=== PATIENT | female | born 1975 | race Caucasian/White ===

== ENCOUNTER 2018-01-09 21:12 | Emergency (ER) | payer BC, OTHER ==
[2018-01-09 21:22] VITALS: TEMP 97.7
--- NOTE | 2018-01-09 22:04 | ED ---
Chest Pain HPI - General Chief Complaint: Chest Pain Stated Complaint: CP Time Seen by Provider: 01/09/18 21:24 Source: patient Mode of arrival: wheelchair Limitations: no limitations - History of Present Illness MD Complaint: chest pain -: days(s) Onset: during rest Pain Location: left chest Pain Radiation: back Severity: moderate Quality: aching Consistency: constant Improves With: nothing Worsens With: palpation Other Symptoms: cough Treatments Prior to Arrival: other (Antibiotic course) - Related Data Home Medications Medication Instructions Recorded Confirmed Excedrin Migraine 2 tab PO BID PRN 08/01/15 08/01/15 Previous Rx's Medication Instructions Recorded HYDROcodone/APAP 5-325MG [Clio 1 tab PO Q6HR PRN #20 tab 08/01/15 5-325] Ibuprofen [Motrin] 600 mg PO Q6HR PRN #20 tab 08/01/15 Orphenadrine [Norflex] 100 mg PO Q12H PRN #12 tablet.er 08/01/15 Ibuprofen [Motrin] 600 mg PO Q8HR PRN #20 tab 01/10/18 Promethazine 6.25MG/5Ml [Phenergan 5 ml PO Q4HR PRN #120 ml 01/10/18 Syrup] Allergies Allergy/AdvReac Type Severity Reaction Status Date / Time cephalexin monohydrate Allergy Rash/Hives Verified 08/01/15 19:18 [From Keflex] chocolate flavor Allergy Rash/Hives Verified 08/01/15 19:18 ciprofloxacin [From Cipro] Allergy Unknown Verified 01/09/18 21:23 corn Allergy Rash/Hives Verified 08/01/15 19:18 Penicillins Allergy Unknown Verified 08/01/15 19:18 Childhood Sulfa (Sulfonamide Allergy Rash/Hives Verified 08/01/15 19:18 Antibiotics) Review of Systems ROS Statement: Those systems with pertinent positive or pertinent negative responses have been documented in the HPI. ROS Other: All systems not noted in ROS Statement are negative. Constitutional: Denies: fever, chills Respiratory: Reports: cough. Denies: dyspnea Cardiovascular: Reports: chest pain. Denies: palpitations Gastrointestinal: Denies: abdominal pain, nausea, vomiting, diarrhea Genitourinary: Denies: dysuria, hematuria Musculoskeletal: Denies: back pain Skin: Denies: rash Neurological: Denies: headache, weakness, numbness EKG Findings - EKG Results: EKG: interpreted by ERMD, sinus rhythm, normal axis, normal QRS, normal ST/T EKG shows: tachycardia (Rate approximate 105 bpm) Past Medical History Past Medical History: Diabetes Mellitus, Fibromyalgia Additional Past Medical History / Comment(s): Sciatica; Fibromyalgia; Herniated Discs History of Any Multi-Drug Resistant Organisms: None Reported Past Surgical History: Section, Cholecystectomy Past Psychological History: Anxiety, Depression Smoking Status: Former smoker Past Alcohol Use History: None Reported Past Drug Use History: None Reported General Exam Limitations: no limitations General appearance: alert, in no apparent distress, obese Head exam: Present: atraumatic, normocephalic ENT exam: Present: normal oropharynx Respiratory exam: Present: normal lung sounds bilaterally, chest wall tenderness (Left-sided ribs along the costal margin). Absent: respiratory distress, wheezes, rales, rhonchi, stridor, accessory muscle use, decreased breath sounds, prolonged expiratory Cardiovascular Exam: Present: normal rhythm, tachycardia (Rate 108 at my exam), normal heart sounds. Absent: systolic murmur, diastolic murmur, rubs, gallop GI/Abdominal exam: Present: soft. Absent: distended, tenderness, guarding, rebound Extremities exam: Present: normal inspection, normal capillary refill. Absent: pedal edema, calf tenderness Back exam: Present: normal inspection. Absent: CVA tenderness (R), CVA tenderness (L), paraspinal tenderness, vertebral tenderness Neurological exam: Present: alert Skin exam: Present: warm, dry, intact, normal color. Absent: rash Course Vital Signs 01/09/18 01/09/18 01/10/18 21:17 21:49 00:33 Temperature 97.7 F Pulse Rate 108 H 144 H Pulse Rate [ 113 H Oiler Helper ] Respiratory 17 19 Rate Blood Pressure 152/80 128/86 O2 Sat by Pulse 100 95 Oximetry Disposition Clinical Impression: Chest wall pain, Hyperglycemia Disposition: HOME SELF-CARE Condition: Good Instructions: Chest Wall Pain (ED) Prescriptions: Ibuprofen [Motrin] 600 mg PO Q8HR PRN #20 tab PRN Reason: Pain Promethazine 6.25MG/5Ml [Phenergan Syrup] 5 ml PO Q4HR PRN #120 ml PRN Reason: Cough Is patient prescribed a controlled substance at d/c from ED?: No Referrals: Marshal Dudley MD [Primary Care Provider] - 1-2 days
--- NOTE | 2018-01-09 22:21 | XR ---
EXAMINATION TYPE: XR chest 2V DATE OF EXAM: 01/09/2018 COMPARISON: NONE HISTORY: Chest pain TECHNIQUE: Frontal and lateral views of the chest are obtained. FINDINGS: Heart and mediastinum are normal. Lungs are clear. Diaphragm is normal. Bony thorax is int act. There are chest leads. IMPRESSION: Normal chest
[2018-01-09 22:31] LABS: Basophils % (A) 0 %; Eosinophils # (A) 0.2 k/uL (0-0.7); Eosinophils % (A) 2 %; HCT 41.2 % (34.0-46.0); Lymphocytes # (A) 2.4 k/uL (1.0-4.8); Lymphocytes % (A) 25 %; MCH 29.2 pg (25.0-35.0); MCHC 31.7 g/dL (31.0-37.0); MCV 92.1 fL (80.0-100.0); Mean Platelet Volume 6.6; Monocytes # (A) 0.5 k/uL (0-1.0); Monocytes % (A) 5 %; Neutrophils # (A) 6.3 k/uL (1.3-7.7); Neutrophils % (A) 66 %; Platelet Count 408 k/uL (150-450); RBC 4.47 m/uL (3.80-5.40); RDW 13.5 % (11.5-15.5); WBC 9.5 k/uL (3.8-10.6)
[2018-01-09 22:49] LABS: ALT 22 U/L (9-52); AST 24 U/L (14-36); Albumin 4.1 g/dL (3.5-5.0); Alkaline Phosphatase 77 U/L (38-126); Anion Gap 10 mmol/L; Blood Urea Nitrogen 13 mg/dL (7-17); Calcium 9.7 mg/dL (8.4-10.2); Carbon Dioxide 25 mmol/L (22-30); Chloride 104 mmol/L (98-107); Glucose 221 mg/dL (74-99); Magnesium 1.9 mg/dL (1.6-2.3); Potassium 4.9 mmol/L (3.5-5.1); Sodium 139 mmol/L (137-145); Total Bilirubin 0.5 mg/dL (0.2-1.3); Total Protein 7.2 g/dL (6.3-8.2)
[2018-01-09 22:50] LABS: Creatine Kinase 48 U/L (30-135)
[2018-01-09 23:03] LABS: Creatine Kinase MB 0.3 ng/mL (0.0-2.4); Troponin I <0.012 ng/mL (0.000-0.034)
[2018-01-09 23:44] LABS: D-Dimer 0.35 mg/L FEU (<0.60); Prothrombin Time 9.9 sec (9.0-12.0)
[2018-01-10 00:34] VITALS: BP 128/86; PULSE 144; RESP 19
== END 2018-01-10 00:43 | disposition home or self-care (01) ==
LOC: EC 21:12
DX: R07.89 Other chest pain (principal); E11.65 Type 2 diabetes mellitus with hyperglycemia; Z88.0 Allergy status to penicillin; Z88.1 Allergy status to other antibiotic agents; Z88.2 Allergy status to sulfonamides; Z91.018 Allergy to other foods; Z87.891 Personal history of nicotine dependence
CPT/HCPCS: 36415; 71046; 80053; 82550; 82553; 83735; 84484; 85025; 85379; 85610; 85730; 93005; 99285

== ENCOUNTER → 2018-01-14 | Outpatient (CLI) | payer OTHER ==
[~2018-01-14] MED LIST: CAFFEINE CITRATE 60 MG/3 ML VIAL ONE; DEXTROSE 5% IN WATER 50 ML BAG ONE; REGADENOSON 0.4 MG/5 ML SYRINGE IV ONE
--- NOTE | 2018-01-14 11:38 | EST ---
EXERCISE STRESS AGE: 42 SEX: F HT: 5'5" WT: 355 PROTOCOL: Lexiscan Cardiolite Stress Test HEART RATE REST: 85 BLOOD PRESSURE REST: 153/84 MAXIMUM HEART RATE ACHIEVED: 128 MAXIMUM BLOOD PRESSURE: 158/43 INDICATIONS: Chest pain. CLINICAL INFORMATION: Baseline EKG shows sinus rhythm, normal axis, normal intervals. Patient was given intravenous Lexiscan as per protocol. Did not have chest pain or diagnostic ST-segment depression. CONCLUSIONS: 1. Negative stress test by EKG criteria. 2. Cardiolite portion of the stress test will be reported separately. MMODL / IJN: [id number] /
--- NOTE | 2018-01-14 14:44 | NM ---
EXAMINATION TYPE: NM stress lexiscan cardiolite DATE OF EXAM: 01/14/2018 COMPARISON: NONE HISTORY: History of tobacco use quit 10 years ago. Family history of heart attack and mild and partia l history of diabetes presents with chest pain and palpitations TECHNIQUE: After the intravenous administration of 10.41 mCi Tc 99m Sestamibi - Cardiolite resting S PECT images acquired 45 minutes post injection. The patient received 0.4mg Lexiscan, 25.2 mCi Tc 99m Sestamibi - Stress images obtained [address] injection FINDINGS: Review of stress and rest SPECT images demonstrates poor uptake involving anterior left ventricular w all on stress and rest images seen best short axis and vertical long axis views with suggestion of so me increased perfusion on the rest images versus stress images. Acute ischemia at this level cannot be excluded. Gated analysis shows normal wall motion with an estimated left ventricular ejection frac tion of 63 %. IMPRESSION: Cannot rule out acute ischemia involving anterior wall in the LAD distribution. Advise fu rther investigation with direct catheter angiogram or CTA coronary study. Results communicated to ordering physician office via telephone at time of dictation.
== END | disposition home or self-care (01) ==
LOC: RADNMMAIN 07:40
PROVIDERS: ATTEND Family Medicine
DX: R07.89 Other chest pain (principal)
CPT/HCPCS: 93017; 78452; A9500; J2785

== ENCOUNTER → 2019-11-30 | Outpatient (CLI) | payer OTHER ==
[2019-12-01 01:30] LABS: Cyclic Citrull Pep IgG Unit 0.9 U/mL; Cyclic Citrullinated Pep IgG NEGATIVE (NEGATIVE)
[2019-12-01 02:18] LABS: C Reactive Protein 0.8 mg/dL (0.0-0.8)
== END | disposition home or self-care (01) ==
LOC: LABWHC1 15:16
PROVIDERS: ATTEND Family Medicine
DX: Z13.828 Encounter for screening for other musculoskeletal disorder (principal); Z82.61 Family history of arthritis
CPT/HCPCS: 36415; 85652; 86038; 86140; 86200; 86431

== ENCOUNTER → 2020-02-06 | Outpatient (CLI) | payer OTHER | END | disposition home or self-care (01) | LOC: LABWHC1 15:53 | PROVIDERS: ATTEND Family Medicine | DX: Z20.828 Contact with and (suspected) exposure to other viral communicable diseases (principal) | CPT/HCPCS: U0003; C9803 ==

== ENCOUNTER 2020-11-06 18:06 | Emergency (ER) | payer OTHER ==
[2020-11-06 18:59] VITALS: BP 136/88; PULSE 69; RESP 18; TEMP 98.4
[2020-11-06] MEDS ORDERED: LIDOCAINE 1% INJ 10MG/ML (20 ML MDV) SQ ONE (20:01)
--- NOTE | 2020-11-06 20:06 | ED ---
Female Urogenital HPI - General Source: patient, RN notes reviewed Mode of arrival: ambulatory Limitations: no limitations - History of Present Illness MD Complaint: other (Bartholin's gland swelling) -: days(s) (8) Location: labia Radiation: non-radiating Severity scale (1-10): 6 Quality: sharp Consistency: constant Improves with: none Worsens with: other (Palpation) Associated Symptoms: denies other symptoms <Ezequiel Crawford - Last Filed: 11/06/20 23:00> <Mariola Kenney - Last Filed: 11/10/20 14:28> - General Chief complaint: Urogenital Stated complaint: cyst Time Seen by Provider: 11/06/20 19:30 - History of Present Illness Initial comments: 45-year-old obese white female presents to the emergency room with complaints of a bartholoin gland swelling for the past 8 days. Patient states that she's had these before. She did contact her primary care doctor and he told her he did not drain them in the office and have to refer her someone else. Patient states that she's been trying to soak in the bathtub at home also tried Epsom salts she states that she had a Z-Sameer that was prescribed to her that she did not use and took that finishing the last one yesterday. She states that she did have a fever of 100.7 today and did take Motrin her temperature at this time is 98.4. Patient states that she does not have diabetes. (Ezequiel Crawford) - Related Data Home Medications Medication Instructions Recorded Confirmed Excedrin Migraine 2 tab PO BID PRN 08/01/15 08/01/15 Previous Rx's Medication Instructions Recorded HYDROcodone/APAP 5-325MG [Firestone 1 tab PO Q6HR PRN #20 tab 08/01/15 5-325] Ibuprofen [Motrin] 600 mg PO Q6HR PRN #20 tab 08/01/15 Orphenadrine [Norflex] 100 mg PO Q12H PRN #12 tablet.er 08/01/15 Ibuprofen [Motrin] 600 mg PO Q8HR PRN #20 tab 01/10/18 Promethazine 6.25MG/5Ml [Phenergan 5 ml PO Q4HR PRN #120 ml 01/10/18 Syrup] Allergies Allergy/AdvReac Type Severity Reaction Status Date / Time cephalexin monohydrate Allergy Rash/Hives Verified 11/06/20 18:58 [From Keflex] chocolate flavor Allergy Rash/Hives Verified 11/06/20 18:58 ciprofloxacin [From Cipro] Allergy Unknown Verified 11/06/20 18:58 corn Allergy Rash/Hives Verified 11/06/20 18:58 Penicillins Allergy Unknown Verified 11/06/20 18:58 Childhood Sulfa (Sulfonamide Allergy Rash/Hives Verified 11/06/20 18:58 Antibiotics) Review of Systems ROS Other: All systems not noted in ROS Statement are negative. <Ezequiel Crawford - Last Filed: 11/06/20 23:00> ROS Other: All systems not noted in ROS Statement are negative. <Mariola Kenney - Last Filed: 11/10/20 14:28> ROS Statement: Those systems with pertinent positive or pertinent negative responses have been documented in the HPI. Past Medical History Past Medical History: Diabetes Mellitus, Fibromyalgia Additional Past Medical History / Comment(s): Sciatica; Fibromyalgia; Herniated Discs History of Any Multi-Drug Resistant Organisms: None Reported Past Surgical History: Section, Cholecystectomy Past Psychological History: Anxiety, Depression Smoking Status: Never smoker Past Alcohol Use History: None Reported Past Drug Use History: None Reported <Ezequiel Crawford - Last Filed: 11/06/20 23:00> General Exam Limitations: no limitations General appearance: alert, in no apparent distress Head exam: Present: atraumatic, normocephalic, normal inspection Eye exam: Present: normal appearance, PERRL, EOMI. Absent: scleral icterus, conjunctival injection, periorbital swelling ENT exam: Present: normal exam, mucous membranes moist Neck exam: Present: normal inspection, full ROM. Absent: tenderness, meningis mus, lymphadenopathy Respiratory exam: Present: normal lung sounds bilaterally. Absent: respiratory distress, wheezes, rales, rhonchi, stridor, accessory muscle use, decreased breath sounds Cardiovascular Exam: Present: regular rate, normal rhythm, normal heart sounds. Absent: systolic murmur, diastolic murmur, rubs, gallop, clicks GI/Abdominal exam: Present: soft, normal bowel sounds. Absent: distended, tenderness, guarding, rebound, rigid External exam: Present: erythema, swelling. Absent: lesions, lacerations, ecchymosis (Right labia) Neurological exam: Present: alert, oriented X3, CN II-XII intact Psychiatric exam: Present: normal affect, normal mood Skin exam: Present: warm, dry, intact, normal color. Absent: rash, cyanosis, diaphoretic <Ezequiel Crawford - Last Filed: 11/06/20 23:00> Course Vital Signs 11/06/20 18:56 Temperature 98.4 F Pulse Rate 69 Respiratory 18 Rate Blood Pressure 136/88 O2 Sat by Pulse 98 Oximetry Procedures - Incision & Drainage Consent Obtained: verbal consent Site: vulva/vagina (bartholin gland) Anesthetic Used: lidocaine 1% I&D Cleaning Method: Betadine Sterile Field Used?: Yes Scalpel Used: #11 Needle Aspiration Performed?: No I&D Drainage Obtained: Pus, Blood Culture Obtained?: No Patient Tolerated Procedure: well <Ezequiel Crawford - Last Filed: 11/06/20 23:00> Medical Decision Making <Ezequiel Crawford - Last Filed: 11/06/20 23:00> <Mariola Kenney - Last Filed: 11/10/20 14:28> - Medical Decision Making Bartholin's gland drainage from the right labia performed. Patient tolerated procedure well with 1% lidocaine and scalpel. She will be directed to use sitz baths 3 times a day and follow-up with her primary care doctor or gynecology next week. Return to emergency room with any worsening or new symptoms. Case discussed with Dr. Kenney (Ezequiel Crawford) I was available for consultation in the emergency department. The history and physical exam were done by the midlevel provider. I was consulted for this patients care. I reviewed the case with the midlevel provider and based on their presentation of the patient, I agree with the assessment, medical decision making and plan of care as documented. Lubin catheter attempted however patient could not tolerate and asked for removal. Chart was dictated using [employer] dictation software. Attempts were made to correct any dictation errors however some typographical errors may persist. Patient was seen during a national state of emergency due to the Covid-19 pandemic. (Mariola Kenney) Disposition Is patient prescribed a controlled substance at d/c from ED?: No Time of Disposition: 20:39 <Ezequiel Crawford - Last Filed: 11/06/20 23:00> <Mariola Kenney - Last Filed: 11/10/20 14:28> Clinical Impression: Bartholin's gland abscess Disposition: HOME SELF-CARE Condition: Good Instructions (If sedation given, give patient instructions): Bartholin Cyst (ED), Incision and Drainage (ED) Additional Instructions: Use sitz bath 3 times a day, return to the emergency room with any worsening symptoms including fever, increased pain. Follow-up with your doctor in 1 week Referrals: Marshal Dudley MD [Primary Care Provider] - 1-2 days Vadim Be MD [STAFF PHYSICIAN] - 1-2 days
== END 2020-11-06 21:40 | disposition home or self-care (01) ==
LOC: EC 18:06
DX: N75.1 Abscess of Bartholin's gland (principal); E11.9 Type 2 diabetes mellitus without complications; M79.7 Fibromyalgia; F32.9 Major depressive disorder, single episode, unspecified; F41.9 Anxiety disorder, unspecified; Z79.1 Long term (current) use of non-steroidal anti-inflammatories (NSAID); Z79.899 Other long term (current) drug therapy; Z88.0 Allergy status to penicillin; Z88.1 Allergy status to other antibiotic agents; Z88.2 Allergy status to sulfonamides; Z88.8 Allergy status to other drugs, medicaments and biological substances
CPT/HCPCS: 56420; 99283; J2001

== ENCOUNTER 2021-02-16 21:36 | Emergency (ER) | payer OTHER ==
--- NOTE | 2021-02-16 22:11 | ED ---
Chest Pain HPI - General Chief Complaint: Chest Pain Stated Complaint: Chest pain Time Seen by Provider: 02/16/21 21:52 Source: patient Mode of arrival: ambulatory Limitations: no limitations - History of Present Illness Initial Comments: This patient is a 39-year-old woman who presents to be evaluated for bilateral chest pain that is been going on for couple of days. She describes it as a tightness. She states that it came on at rest. She states she has been doing a lot of coughing going back for a few weeks. Last month she had been diagnosed w ith pneumonia and she states that it started to get a little better and then the cough seemed to persist. She did have coronavirus exposures so she was tested for that on Thursday and was positive. The patient has not had other anginal symptoms. No dyspnea, diaphoresis, nausea or vomiting, palpitations or lightheadedness. MD Complaint: chest pain Onset/Timin -: days(s) Onset: during rest Pain Location: left chest, right chest Pain Radiation: none Severity: mild Quality: tightness Consistency: constant Improves With: nothing Worsens With: nothing Treatments Prior to Arrival: none - Related Data Home Medications Medication Instructions Recorded Confirmed Albuterol Sulfate [Ventolin HFA] 2 puff INHALATION RT-QID PRN 02/16/21 02/16/21 Azithromycin [Zithromax] 500 mg PO DAILY 02/16/21 02/16/21 Dexamethasone 6 mg PO DAILY 02/16/21 02/16/21 Magnesium 250 mg PO DAILY 02/16/21 02/16/21 Allergies Allergy/AdvReac Type Severity Reaction Status Date / Time cephalexin monohydrate Allergy Rash/Hives Verified 02/16/21 22:24 [From Keflex] chocolate flavor Allergy Rash/Hives Verified 02/16/21 22:24 ciprofloxacin [From Cipro] Allergy Unknown Verified 02/16/21 22:24 corn Allergy Rash/Hives Verified 02/16/21 22:24 Penicillins Allergy Unknown Verified 02/16/21 22:24 Childhood Sulfa (Sulfonamide Allergy Rash/Hives Verified 02/16/21 22:24 Antibiotics) Review of Systems ROS Statement: Those systems with pertinent positive or pertinent negative responses have been documented in the HPI. ROS Other: All systems not noted in ROS Statement are negative. Constitutional: Denies: fever, chills ENT: Denies: ear pain, congestion Respiratory: Reports: as per HPI, cough. Denies: dyspnea, wheezes, hemoptysis Cardiovascular: Reports: as per HPI, chest pain. Denies: palpitations, orthopnea, edema, syncope Gastrointestinal: Denies: abdominal pain, vomiting, diarrhea Genitourinary: Denies: dysuria, hematuria Musculoskeletal: Denies: back pain Skin: Denies: rash Neurological: Denies: headache, weakness EKG Findings - EKG Results: EKG: interpreted by ERMD, sinus rhythm, normal axis, normal QRS, normal ST/T, no acute changes EKG shows: tachycardia (Rate 102) Past Medical History Past Medical History: Diabetes Mellitus, Fibromyalgia Additional Past Medical History / Comment(s): Sciatica; Fibromyalgia; Herniated Discs. Covid 02/26 History of Any Multi-Drug Resistant Organisms: None Reported Past Surgical History: Section, Cholecystectomy Past Psychological History: Anxiety, Depression Smoking Status: Never smoker Past Alcohol Use History: None Reported Past Drug Use History: None Reported General Exam Limitations: no limitations General appearance: alert, in no apparent distress Head exam: Present: atraumatic, normocephalic Eye exam: Present: normal appearance. Absent: scleral icterus, conjunctival injection Neck exam: Present: normal inspection Respiratory exam: Present: normal lung sounds bilaterally. Absent: respiratory distress, wheezes, rales, rhonchi, stridor, chest wall tenderness Cardiovascular Exam: Present: regular rate, normal rhythm, normal heart sounds. Absent: systolic murmur, diastolic murmur, rubs, gallop GI/Abdominal exam: Present: soft. Absent: distended, tenderness, guarding, rebound, rigid, mass Extremities exam: Present: normal inspection, normal capillary refill. Absent: pedal edema, calf tenderness Back exam: Present: normal inspection. Absent: CVA tenderness (R), CVA tenderness (L) Neurological exam: Present: alert Skin exam: Present: warm, dry, intact, normal color. Absent: rash Course Vital Signs 02/16/21 02/16/21 21:37 22:36 Temperature 98.5 F Pulse Rate 118 H 93 Respiratory 22 18 Rate Blood Pressure 138/87 116/72 O2 Sat by Pulse 95 98 Oximetry Disposition Clinical Impression: Chest pain Disposition: HOME SELF-CARE Condition: Good Instructions (If sedation given, give patient instructions): Chest Pain (ED) Is patient prescribed a controlled substance at d/c from ED?: No Referrals: Marshal Dudley MD [Primary Care Provider] - 1-2 days
[2021-02-16 22:45] VITALS: RESP 18
[2021-02-16 22:57] LABS: Basophils % (A) 0 %; Eosinophils % (A) 0 %; HCT 42.9 % (34.0-46.0); HGB 14.1 gm/dL (11.4-16.0); Lymphocytes # (A) 0.6 k/uL (1.0-4.8); Lymphocytes % (A) 11 %; MCH 31.2 pg (25.0-35.0); MCHC 32.8 g/dL (31.0-37.0); MCV 95.1 fL (80.0-100.0); Mean Platelet Volume 6.8; Monocytes # (A) 0.2 k/uL (0-1.0); Monocytes % (A) 4 %; Neutrophils # (A) 4.1 k/uL (1.3-7.7); Neutrophils % (A) 83 %; Platelet Count 286 k/uL (150-450); RBC 4.51 m/uL (3.80-5.40); RDW 13.3 % (11.5-15.5); WBC 4.9 k/uL (3.8-10.6)
--- NOTE | 2021-02-16 23:04 | XR ---
EXAMINATION TYPE: XR chest 1V portable DATE OF EXAM: 02/16/2021 COMPARISON: 01/09/2018 HISTORY: Chest pain TECHNIQUE: FINDINGS: Heart is normal. Lungs are clear. Diaphragm is normal. There are chest leads. Bony thorax a ppears normal. IMPRESSION: Normal chest. No change.
[2021-02-16 23:06] LABS: ALT 10 U/L (4-34); AST 22 U/L (14-36); African American GFR (CKD) >90 (>60 ml/min/1.73 sqM); Albumin 3.8 g/dL (3.5-5.0); Alkaline Phosphatase 75 U/L (38-126); Anion Gap 9 mmol/L; Blood Urea Nitrogen 11 mg/dL (7-17); Carbon Dioxide 24 mmol/L (22-30); Chloride 102 mmol/L (98-107); Glucose 189 mg/dL (74-99); Magnesium 1.7 mg/dL (1.6-2.3); Non-African American GFR(CKD) >90 (>60 ml/min/1.73 sqM); Potassium 4.5 mmol/L (3.5-5.1); Sodium 135 mmol/L (137-145); Total Bilirubin 0.4 mg/dL (0.2-1.3); Total Protein 6.9 g/dL (6.3-8.2)
[2021-02-16 23:23] LABS: INR 0.9 (<1.2); Partial Thromboplastin Time 25.7 sec (22.0-30.0); Prothrombin Time 10.2 sec (9.0-12.0)
[2021-02-17] MEDS ORDERED: SODIUM CHLORIDE 0.9% 50 ML IVPB ONE (00:15)
[2021-02-17] MEDS ORDERED: BAMLANIVIMAB (EUA) 700 MG, ETESEVIMAB (EUA) 1,400 MG in SODIUM CHLORIDE 0.9% 50 ML IVPB ONE (00:30)
[2021-02-17 02:02] VITALS: BP 123/79; PULSE 97; TEMP 98.1
== END 2021-02-17 02:02 | disposition home or self-care (01) ==
LOC: EC 21:36
DX: R07.9 Chest pain, unspecified (principal); U07.1 COVID-19; E11.9 Type 2 diabetes mellitus without complications; F41.9 Anxiety disorder, unspecified; F32.A Depression, unspecified
CPT/HCPCS: 36415; 93005; 85379; 80053; 83735; 84484; 85025; 85610; 85730; 71045; 99285; 96360; J3490

== ENCOUNTER → 2021-04-30 | Outpatient (CLI) | payer OTHER ==
--- NOTE | 2021-04-30 17:46 | XR ---
EXAMINATION TYPE: XR thoraco lumbar junction 2 views, XR ribs 4 views RT DATE OF EXAM: 04/30/2021 COMPARISON: NONE HISTORY: 45-year-old female right rib and back pain after fall. S29.9XXA injury. M54.6 pain thoraci c spine FINDINGS: Right RIBS: Mild/moderate degenerative change AC joint. There is a 5 mm focus of calcification adjacent to the ri ght greater tuberosity. Correlation can be made for any symptoms of calcific tendinitis of the rotato r cuff. No displaced rib fracture is clearly identified. Cholecystectomy clips. Thoracic lumbar junction: Slight degenerative levoconvex undulation along the upper third lumbar spine. There is mild degenerat robbie disc disease at the thoracolumbar junction and moderate in the upper lumbar spine with a grade 1 retrolisthesis at a particular level, probably L2-L3. Vertebral body heights are maintained and the v isualized lower thoracic and upper lumbar spine. IMPRESSION: 1. Right RIBS: [id number] AC joint OA. A 5 mm focus of calcification adjacent to the right grea ter tuberosity; correlate to exclude any potential symptoms of calcific tendinitis of the rotator cuf f. No displaced right rib fracture seen. 2. Thoracolumbar junction: Slight degenerative levoconvex undulation along the upper lumbar spine. Mi ld degenerative disc disease thoracic lumbar junction and moderate in the upper lumbar spine. Degener ative grade 1 retrolisthesis likely corresponding to the L2-L3 level. No vertebral compression collap se at the thoracolumbar junction.
== END ==
LOC: RADXRMAIN 12:02
PROVIDERS: ATTEND Physician Assistant
DX: M51.36 Other intervertebral disc degeneration, lumbar region (principal)
CPT/HCPCS: 72080

== ENCOUNTER → 2021-05-10 | Outpatient (CLI) | payer OTHER ==
--- NOTE | 2021-05-10 09:47 | CT ---
EXAMINATION TYPE: CT chest abdomen w con DATE OF EXAM: 05/10/2021 COMPARISON: CT dated 05/18/2010 HISTORY: RUQ pain CT DLP: 2937.4 mGycm. Automated Exposure Control for Dose Reduction was Utilized. CONTRAST: CT scan of the thorax, abdomen and pelvis is performed with IV Contrast, patient injected with 100 mL of Isovue 300. FINDINGS: LUNGS: 4 mm faint groundglass opacity at the anterior aspect of the right lower lobe superior segment (image #[id number], series 4). Subtle groundglass opacity seen in the left lung apex, nonspecific. Unremarka ble lungs otherwise. Patent central airways. No pleural effusion. MEDIASTINUM: There are no greater than 1 cm hilar or mediastinal lymph nodes. No gross cardiomegaly. Coronary arterial calcifications. No pericardial effusion is seen. OTHER: No aggressive bone lesion. LIVER/GB: The liver measures 18.6 cm. Questionable hepatic steatosis. No definite hepatic focal lesio n. Previous cholecystectomy. PANCREAS: Fatty infiltration of the pancreatic head, otherwise unremarkable pancreas. SPLEEN: No significant abnormality is seen. ADRENALS: No significant abnormality is seen. KIDNEYS: No significant abnormality is seen. BOWEL: Unremarkable stomach, duodenum and visualized small bowel. No gross abnormality of the visuali zed portion of the colon. GENITAL ORGANS: Not completely included in the scan. LYMPH NODES: No greater than 1cm abdominal lymph nodes. OSSEOUS STRUCTURES: Degenerative changes at L2-3 level with mild retrolisthesis. OTHER: No evidence of ascites. Scattered arterial atherosclerotic calcifications. Circumaortic left r enal vein. Small fat-containing umbilical hernia with larger infraumbilical fat-containing hernia janneth suring up to 3.4 cm. IMPRESSION: 1. 4 mm right lower lobe lung nodule, requiring no further follow-up if low risk patient. If high ris k patient, optional follow-up CT scan in 12 months can be considered. 2. Umbilical and infraumbilical fat-containing hernias as described above. Please correlate clinicall y. Other incidental findings as described above.
== END | disposition home or self-care (01) ==
LOC: RADCTMAIN 08:20
PROVIDERS: ATTEND Family Medicine
DX: R91.1 Solitary pulmonary nodule (principal); K42.9 Umbilical hernia without obstruction or gangrene
CPT/HCPCS: 71260; 74160; Q9967

== ENCOUNTER 2021-09-04 17:26 | Emergency (ER) | payer OTHER ==
[2021-09-04 17:34] VITALS: RESP 18; TEMP 98.7
[2021-09-04 17:58] LABS: Basophils # (A) 0.1 k/uL (0-0.2); Basophils % (A) 1 %; Eosinophils # (A) 0.2 k/uL (0-0.7); Eosinophils % (A) 2 %; HCT 37.2 % (34.0-46.0); HGB 11.8 gm/dL (11.4-16.0); Lymphocytes # (A) 2.4 k/uL (1.0-4.8); Lymphocytes % (A) 23 %; MCH 29.9 pg (25.0-35.0); MCHC 31.7 g/dL (31.0-37.0); MCV 94.4 fL (80.0-100.0); Mean Platelet Volume 6.9; Monocytes # (A) 0.5 k/uL (0-1.0); Monocytes % (A) 5 %; Neutrophils # (A) 7.3 k/uL (1.3-7.7); Neutrophils % (A) 70 %; Platelet Count 397 k/uL (150-450); RBC 3.94 m/uL (3.80-5.40); WBC 10.6 k/uL (3.8-10.6)
[2021-09-04 18:08] LABS: Partial Thromboplastin Time 24.3 sec (22.0-30.0); Prothrombin Time 10.5 sec (9.0-12.0)
[2021-09-04 18:12] LABS: Albumin 3.7 g/dL (3.5-5.0); Calcium 8.7 mg/dL (8.4-10.2); Magnesium 1.9 mg/dL (1.6-2.3); Total Bilirubin 0.3 mg/dL (0.2-1.3); Total Protein 6.4 g/dL (6.3-8.2)
--- NOTE | 2021-09-04 20:03 | XR ---
EXAMINATION TYPE: XR chest 2V DATE OF EXAM: 09/04/2021 COMPARISON: 02/16/2021 INDICATION: Chest pain TECHNIQUE: Frontal and lateral views of the chest are obtained. FINDINGS: The heart size is normal. The pulmonary vasculature is normal. The lungs are clear. IMPRESSION: 1. No acute pulmonary process.
--- NOTE | 2021-09-04 21:56 | ED ---
Chest Pain HPI - General Chief Complaint: Chest Pain Stated Complaint: Chest/jar pain Time Seen by Provider: 09/04/21 19:35 Source: patient Mode of arrival: wheelchair Limitations: no limitations - History of Present Illness Initial Comments: Bárbara is a 45-year-old female presents the ER today for evaluation of a stabbing left lateral chest pain that developed today while she was sitting at work. Pain happened without provocation. Pain is similar to previous episodes costochondritis however patient also felt some pain at the tip of her jaw. She was advised by nurses that this kidney and she's having a heart attack she should come to the hospital. Pains resolved. Patient has no known cardiac history. - Related Data Home Medications Medication Instructions Recorded Confirmed No Known Home Medications 09/04/21 09/04/21 Allergies Allergy/AdvReac Type Severity Reaction Status Date / Time cephalexin monohydrate Allergy Rash/Hives Verified 09/04/21 22:02 [From Keflex] chocolate flavor Allergy Rash/Hives Verified 09/04/21 22:02 ciprofloxacin [From Cipro] Allergy Unknown Verified 09/04/21 22:02 corn Allergy Rash/Hives Verified 09/04/21 22:02 Penicillins Allergy Rash/Hives Verified 09/04/21 22:02 Sulfa (Sulfonamide Allergy Rash/Hives Verified 09/04/21 22:02 Antibiotics) Review of Systems ROS Statement: Those systems with pertinent positive or pertinent negative responses have been documented in the HPI. ROS Other: All systems not noted in ROS Statement are negative. Past Medical History Past Medical History: Diabetes Mellitus, Fibromyalgia Additional Past Medical History / Comment(s): Sciatica; Fibromyalgia; Herniated Discs. Covid 02/26 History of Any Multi-Drug Resistant Organisms: None Reported Past Surgical History: Section, Cholecystectomy Past Psychological History: Anxiety, Depression Smoking Status: Never smoker Past Alcohol Use History: None Reported Past Drug Use History: None Reported General Exam - General Exam Comments Initial Comments: Physical Exam GENERAL: Patient is well-developed and well-nourished. Patient is nontoxic and well-hydrated and is in no distress. BMI 59 HENT: Normocephalic, Atraumatic. EYES: PERRL, EOMI PULMONARY: Unlabored respirations. No audible rales rhonchi or wheezing was noted. CARDIOVASCULAR: There is a regular rate and rhythm without any murmurs gallops or rubs. ABDOMEN: Soft and nontender with normal bowel sounds. SKIN: Skin is clear with no lesions or rashes and otherwise unremarkable. : Deferred NEUROLOGIC: Patient is alert and oriented x3. Moving all extremities spontaneously MUSCULOSKELETAL: Normal extremities with adequate strength and full range of motion. No lower extremity swelling or edema. No calf tenderness. PSYCHIATRIC: Normal psychiatric evaluation. 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 Symptom-free on arrival. Workup was negative. Troponins were repeated at 3 hours and again were negative. Patient's comfortable plan for discharge home with supportive care. Disposition Clinical Impression: Atypical chest pain Disposition: HOME SELF-CARE Condition: Stable Instructions (If sedation given, give patient instructions): Costochondritis (ED) Is patient prescribed a controlled substance at d/c from ED?: No Referrals: Marshal Dudley MD [Primary Care Provider] - 1-2 days
[2021-09-04 22:39] VITALS: BP 128/81; PULSE 71
== END 2021-09-04 22:39 | disposition home or self-care (01) ==
LOC: EC 17:26
DX: R07.89 Other chest pain (principal); E11.9 Type 2 diabetes mellitus without complications; Z88.1 Allergy status to other antibiotic agents; Z88.8 Allergy status to other drugs, medicaments and biological substances; Z91.018 Allergy to other foods; Z88.2 Allergy status to sulfonamides; Z88.0 Allergy status to penicillin
CPT/HCPCS: 36415; 71046; 80053; 83735; 84484; 85025; 85610; 85730; 93005; 99285

== ENCOUNTER → 2024-07-29 | Outpatient (CLI) | payer OTHER ==
--- NOTE | 2024-07-29 14:41 | MM ---
Reason for Exam: Screening (asymptomatic). Baseline mammogram. Patient History: Menarche at age 11. First Full-Term at age 22. Premenopausal. Last menstrual period: 06/23/2024 Risk Values: Millicent 5 year model risk: 0.8%. NCI Lifetime model risk: 8.2%. Prior Study Comparison: Patient's first Mammogram. Tissue Density: The breasts are almost entirely fatty. Findings: Analyzed By CAD. Right breast: There is no suspicious group of microcalcifications or new suspicious mass. Left breast: There is no suspicious group of microcalcifications or new suspicious mass. Overall Assessment: Negative, BI-RAD 1 Management: Screening Mammogram of both breasts in [address] [facility] will attempt to contact patient to return for supplemental views and ultrasound if indicated. Patient should continue monthly self-breast exams. A clinical breast exam by your physician is recommended on an annual basis. This exam should not preclude additional follow-up of suspicious palpable abnormalities. Note on Millicent scores and lifetime risk: 1. A Millicent score greater than 3% is considered moderate risk. If this is the case, consider specialist referral to assess eligibility for a risk reducing agent. 2. If overall lifetime risk for the development of breast cancer is 20% or higher, the patient may qualify for future screening with alternating mammogram and breast MRI. [facility], , 07/29/2024 2:38 PM. Electronically signed and approved by: Harvey Lewis DO
== END | disposition home or self-care (01) ==
LOC: RADMAMWWP 13:43
PROVIDERS: ATTEND Family Medicine
DX: Z12.31 Encounter for screening mammogram for malignant neoplasm of breast (principal); R92.313 Mammographic fatty tissue density, bilateral breasts
CPT/HCPCS: 77067